=== PATIENT | male | born 2000 | race Caucasian/White ===

== ENCOUNTER 2023-09-02 23:50 | Emergency (ER) | payer BC, SELFPAY ==
[2023-09-02 23:53] VITALS: BP 137/87
--- NOTE | 2023-09-03 00:21 | ED.GENMED ---
History of Present Illness
General
Chief Complaint: Heart Rate Problem
Source: patient
Exam Limitations: none
Time Seen by Provider: 09/03/23 00:17
Travel History
Have you had any contact with someone who has COVID-19?: No
Do you have any symptoms of coronavirus? Fever > 100 degrees, chills, cough, shortness of breath, sore throat, loss of taste or smell, muscle aches, or headache?: No
History of Present Illness
History of Present Illness:
Patient presents with heart fluttering over the last 24 hours. Intermittent. At times feels mildly shortness of breath. Feels like he might be in atrial fibrillation although he has never been in atrial fibrillation before. States he does have a
history of PACs. No pleuritic pain no fever no cough.
Past History
Past History
ED Past Medical History: Arrthythmia (PACs)
ED Past Surgical History: Other (Dental)
Social History
Tobacco: Non-smoker
Drug: None
Personal: Single
Employment: Employed
Family History
Family History: Negative Early CAD or Sudden
Phy Exam
Physical Exam
Physical Exam:
GENERAL: Alert and oriented in no apparent distress
EYE: Orbits normal.
NECK: Supple, no thyroid palpable
ENT: Pharynx without erythema
CARDIAC: Regular rate and rhythm without any obvious murmurs.
LUNGS: Clear breath sounds,normal
ABDOMEN: Soft, without focal tenderness or distention
NEUROLOGICAL: Alert and oriented , grossly non-focal. Good lower extremity strength
SKIN: Warm and dry, no rash or lesion, no discoloration, skin intact.
MUSCULOSKELETAL: No edema,no deformity.Good color. No cord. No calf tenderness or swelling
PSYCH: Normal and appropriate interaction.
Course
Orders/Labs/Results
Orders:
Orders
09/02/23 23:58
EKG [Electrocardiogram (*1)] Urgent
Reason for Study: Palpitations
EKG- Treatment ONCE
09/03/23 00:17
Cardiac Monitoring- Treatment ONCE
IV Insert/Care/Rem.- Treatment PRN
09/03/23 00:32
Basic Metabolic Panel Urgent
Complete Blood Count/With Diff Urgent
D-Dimer Urgent
TSH Reflex To Free T4 Urgent
Troponin I Urgent
Abnormal Lab Results
09/03/23
00:32
RBC 4.51 L 10^6/uL
(4.70-6.10)
Hct 38.1 L %
(39.0-52.0)
Abs Immat Gran (auto) 0.1 H 10^3/uL
(0-0.05)
Absolute Neuts (auto) 7.0 H 10^3/uL
(1.4-6.5)
Absolute Monos (auto) 0.8 H 10^3/uL
(0.1-0.6)
Glucose 102 H mg/dl
(70-99)
09/03/23 00:32
09/03/23 00:32
Vital Signs
Initial and Last Documented VS:
Initial Vital Signs
Temp Pulse Resp BP Pulse Ox
98.2 F 76 16 137/87 97
09/02/23 23:53 09/02/23 23:53 09/02/23 23:53 09/02/23 23:53 09/02/23 23:53
Last Documented Vital Signs
Temp Pulse Resp BP Pulse Ox
98.2 F 76 16 137/87 97
09/02/23 23:53 09/02/23 23:53 09/02/23 23:53 09/02/23 23:53 09/03/23 00:35
MDM/Problems Addressed
Differential Diagnosis Includes:
Patient complaining of heart racing and fluttering. Benign exam. Workup in progress. Evaluate for pulmonary emboli, myocarditis, thyroid or electrolyte issue.
*Pulse Oximetry
Patient hypoxic: no
*EKG
Interpreted by ED Provider?: Yes
Interpretation: normal
Comparison EKG: no comparison EKG present
Heart Rate: 67
Rate: normal
Rhythm: sinus
[place]: normal axis
Interval: normal interval
QRS Pattern: normal QRS
Ischemia: no ischemia
*Critical Care Note
Total Time (30-74mins, 75-104mins- exclusive of procedures): Not Applicable
Update Note
Update Note:
Patient has remained medically stable and nontoxic. No arrhythmias on the monitor. Stable for discharge to follow-up
ED Attending Note
-
Portions of this chart may have been created with voice recognition software.� Occasional wrong word or��sound alike� substitutions may have occurred due to the inherent limitations of voice recognition software.
Discharge Plan
Departure
Patient Disposition: Home (Routine Discharge)
Date of Disposition: 09/03/23
Time of Disposition: 01:25
Patient with high blood pressure during this ER visit?: Yes
Discharge Problem:
Palpitations
Instructions: Palpitations (DC), BLOOD PRESSURE
Prescriptions:
No Action
amoxicillin 500 MG capsule
500 mg PO TID Qty: 42 0RF
Referrals:
Angélica Bojorquez CRNP [Family Provider] - Follow up in 2-3 days
Activity Restrictions/Additional Instructions:
As we discussed, to consider Holter monitor with persistent symptoms
Interventions
Interventions:
*Risk Screen - Suicide Last Done: 09/02/23 23:53
*General Assessment Last Done: 09/02/23 23:53
*Neglect/Abuse Screening Last Done: 09/02/23 23:53
ED- Fall Risk Assessment Last Done: 09/02/23 23:53
*ED COVID-19 Vaccine History Last Done: 09/02/23 23:53
*Nursing Disposition Last Done: 09/03/23 01:38
ED- Cardiac Assessment Last Done: 09/03/23 00:35
ED- Pulmonary Assessment Last Done: 09/03/23 00:35
Discharge Date and Time
Discharge Date/Time: 09/03/23 01:38
Print Language: CENTRAL AFRICAN
[2023-09-03 00:35] VITALS: BMI 39.3
[2023-09-03 00:40] LABS: % Basophils 0.5 % (0-2); % Eosinophils 1.1 % (0-6); % Immature Granulocytes 0.5 % (0-0.5); % Lymphocytes 22.7 % (20.5-51.1); % Monocytes 7.5 % (1.7-9.3); % Neutrophils 67.7 % (42.2-75.2); Absolute Basophils 0.1 10^3/uL (0-0.2); Absolute Eosinophils 0.1 10^3/uL (0-0.7); Absolute Immature Granulocytes 0.1 10^3/uL (0-0.05); Absolute Lymphocytes 2.4 10^3/uL (1.2-3.4); Absolute Monocytes 0.8 10^3/uL (0.1-0.6); Hematocrit 38.1 % (39.0-52.0); Hemoglobin 13.6 g/dL (13.0-18.0); Mean Corp Hgb Conc. 35.7 g/dL (33.0-37.0); Mean Corpuscular Hgb 30.2 pg (27.0-31.0); Mean Corpuscular Volume 84.5 fL (80.0-94.0); Mean Platelet Volume 8.8 fL (7.4-10.4); Nucleated Red Blood Cells % 0 % (-); Platelet Count 266 10^3/uL (130-400); Red Blood Cell Count 4.51 10^6/uL (4.70-6.10); Red Cell Dist. Width 11.9 % (11.5-14.5); White Blood Cell Count 10.4 10^3/uL (4.8-10.8)
[2023-09-03 00:53] LABS: D-Dimer 0.28 ug/mlFEU (0.00-0.50)
[2023-09-03 01:04] LABS: Troponin I < 0.012 ng/ml
[2023-09-03 01:20] LABS: Blood Urea Nitrogen 18 mg/dl (9-20); Calcium 9.8 mg/dl (8.4-10.2); Carbon Dioxide 25 mmol/L (22-30); Chloride 104 mmol/L (98-107); Estimated Creatinine Clearance > 125 ml/min; Glucose 102 mg/dl (70-99); Potassium 4.2 mmol/L (3.5-5.1); Sodium 139 mmol/L (135-145); eGFR > 60.00
[2023-09-03 01:35] LABS: TSH Reflex To Free T4 2.62 uIU/ml (0.47-4.68)
== END 2023-09-03 01:38 | disposition home or self-care (01) ==
LOC: EMR 23:50
PROVIDERS: EMERGENCY PHYSICIAN Emergency Medicine; FAMILY PHYSICIAN Nurse Practitioner
DX: R00.2 Palpitations (principal); R06.02 Shortness of breath; R03.0 Elevated blood-pressure reading, without diagnosis of hypertension
CPT/HCPCS: 99283; 80048; 84443; 84484; 85025; 85379; 93005

== ENCOUNTER 2023-09-05 14:23 | Emergency (ER) | payer BC, SELFPAY ==
[2023-09-05 14:28] VITALS: BP 124/73
[2023-09-05 15:13] VITALS: BP 111/76
[2023-09-05 15:47] VITALS: BMI 39.2
[2023-09-05 16:00] VITALS: BP 134/62
--- NOTE | 2023-09-05 16:20 | ED.GENMED ---
History of Present Illness
General
Chief Complaint: Heart Rate Problem
Source: patient
Time Seen by Provider: 09/05/23 16:07
Travel History
Have you had any contact with someone who has COVID-19?: No
Do you have any symptoms of coronavirus? Fever > 100 degrees, chills, cough, shortness of breath, sore throat, loss of taste or smell, muscle aches, or headache?: No
History of Present Illness
History of Present Illness:
23-year-old male presents to the emergency room complaining of palpitations. Patient had an episode today where he felt a bit lightheaded. He noted that his pulse changed from 70s to 60s. He thought this might be too low for him. 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 He denies any significant chest pain. No shortness of breath. He does not take any prescription medications.
Past History
Past History
ED Past Medical History: Arrthythmia (PACs)
ED Past Surgical History: Other (Dental)
Social History
Tobacco: Non-smoker
Drug: None
Personal: Single
Employment: Employed
Family History
Family History: Negative Early CAD or Sudden
Phy Exam
Physical Exam
Physical Exam:
General: Awake, Alert, Oriented X3. No acute distress.
Vitals: unremarkable
Head: Atraumatic
Eyes: Pupils equal, EOMI
Throat: Airway intact, no exudates
Neck: Trachea midline
Lungs: Clear and equal b/l
Heart: Regular rate, no murmurs
Abd: Soft, Nontender, No pulsatile mass
Neuro: Nonfocal
Skin: Warm, dry, no rash
Extremities: pulses equal b/l, no edema
Course
Orders/Labs/Results
Orders:
Orders
09/05/23 14:31
EKG [Electrocardiogram (*1)] Urgent
Reason for Study: Tachycardia
EKG- Treatment ONCE
Vital Signs
Initial and Last Documented VS:
Initial Vital Signs
Temp Pulse Resp BP Pulse Ox
98.5 F 76 18 124/73 97
09/05/23 14:28 09/05/23 14:28 09/05/23 14:28 09/05/23 14:28 09/05/23 14:28
Last Documented Vital Signs
Temp Pulse Resp BP Pulse Ox
98.5 F 66 24 111/76 96
09/05/23 14:28 09/05/23 15:46 09/05/23 15:46 09/05/23 15:13 09/05/23 15:47
MDM/Problems Addressed
Differential Diagnosis Includes:
PACs, PVCs, normal sinus rhythm, anxiety
MDM/Problems Addressed:
Patient presents for changes in his heart rate. Patient has not had any dysrhythmias on the monitor. His EKG is normal. Patient had blood work couple days ago which was normal. Patient can be reassured that there is no significant abnormalities.
He is stable for discharge home and outpatient follow-up with his primary care provider.
*Pulse Oximetry
Patient hypoxic: no
*EKG
Interpreted by ED Provider?: Yes
Interpretation: normal
Heart Rate: 68
Rate: normal
Rhythm: sinus
[place]: normal axis
Interval: normal interval
QRS Pattern: normal QRS
Ischemia: no ischemia
*Talent Acquisition Program Manager Interpretation
Rate: normal
Interpretation: normal
Rhythm: sinus
*Critical Care Note
Total Time (30-74mins, 75-104mins- exclusive of procedures): Not Applicable
ED Attending Note
-
Portions of this chart may have been created with voice recognition software.� Occasional wrong word or��sound alike� substitutions may have occurred due to the inherent limitations of voice recognition software.
Discharge Plan
Departure
Patient Disposition: Home (Routine Discharge)
Date of Disposition: 09/05/23
Time of Disposition: 16:23
Patient with high blood pressure during this ER visit?: No
Condition: Good
Discharge Problem:
Palpitations
Instructions: Palpitations (DC)
Prescriptions:
No Action
amoxicillin 500 MG capsule
500 mg PO TID Qty: 42 0RF
Referrals:
Lois Bird MD [Family Provider] -
Activity Restrictions/Additional Instructions:
You came to the emergency room due to concerns about your heart rate. Your heart has been in a normal rhythm here in the emergency room. I reviewed the blood work obtained the other day and it is normal. I recommended primary care doctor who can
perhaps arrange a monitor that he can wear for extended period of time to make sure there is no other heart rhythm problems however everything here in the emergency room checks out and you are safe for discharge.
Interventions
Interventions:
*Risk Screen - Suicide Last Done: 09/05/23 15:46
*General Assessment Last Done: 09/05/23 14:28
*Neglect/Abuse Screening Last Done: 09/05/23 15:46
ED- Fall Risk Assessment Last Done: 09/05/23 15:46
*ED COVID-19 Vaccine History Last Done: 09/05/23 14:28
ED- Cardiac Assessment Last Done: 09/05/23 15:47
ED- Pulmonary Assessment Last Done: 09/05/23 15:47
Discharge Date and Time
Print Language: SLOVAK
== END 2023-09-05 16:43 | disposition home or self-care (01) ==
LOC: EMR 14:23
PROVIDERS: EMERGENCY PHYSICIAN Emergency Medicine; FAMILY PHYSICIAN Internal Medicine
DX: R00.2 Palpitations (principal); R42 Dizziness and giddiness
CPT/HCPCS: 99283; 93005

== ENCOUNTER → 2023-09-11 10:55 | Outpatient (REF) | payer BC, SELFPAY | LOC: RCS 10:55 | PROVIDERS: ATTENDING PHYSICIAN Nurse Practitioner | DX: R00.2 Palpitations (principal) | CPT/HCPCS: 93225; 93226 ==

== ENCOUNTER 2023-10-01 19:15 | Emergency (ER) | payer BC, SELFPAY ==
[2023-10-01 19:20] VITALS: BP 144/80
[2023-10-01 19:53] VITALS: BMI 39.4
[2023-10-01 19:56] VITALS: BP 132/61
[2023-10-01 20:00] VITALS: BP 135/71
[2023-10-01 20:10] LABS: % Basophils 0.4 % (0-2); % Eosinophils 1.4 % (0-6); % Immature Granulocytes 0.3 % (0-0.5); % Lymphocytes 33.1 % (20.5-51.1); % Neutrophils 57.8 % (42.2-75.2); Absolute Eosinophils 0.1 10^3/uL (0-0.7); Absolute Lymphocytes 3.4 10^3/uL (1.2-3.4); Absolute Monocytes 0.7 10^3/uL (0.1-0.6); Hematocrit 36.3 % (39.0-52.0); Hemoglobin 13.3 g/dL (13.0-18.0); Mean Corp Hgb Conc. 36.6 g/dL (33.0-37.0); Mean Corpuscular Hgb 30.2 pg (27.0-31.0); Mean Corpuscular Volume 82.3 fL (80.0-94.0); Mean Platelet Volume 8.9 fL (7.4-10.4); Nucleated Red Blood Cells % 0 % (-); Platelet Count 264 10^3/uL (130-400); Red Blood Cell Count 4.41 10^6/uL (4.70-6.10); Red Cell Dist. Width 11.9 % (11.5-14.5); White Blood Cell Count 10.4 10^3/uL (4.8-10.8)
--- NOTE | 2023-10-01 20:15 | ED.GENMED ---
History of Present Illness
General
Chief Complaint: Chest Pain
Source: patient
Exam Limitations: none
Time Seen by Provider: 10/01/23 20:07
History of Present Illness
History of Present Illness:
23-year-old male presents complaining of chest pain that has been ongoing for several days for pain that radiates down the left arm. He denies significant shortness of breath. The pain is not pleuritic. He was here 3 weeks ago for palpitations
and in the interim had a Holter monitor placed. No recent travel or surgery. No leg swelling or calf pain. No other complaints at this
Past History
Past History
ED Past Medical History: Arrthythmia (PACs)
ED Past Surgical History: Other (Dental)
Social History
Tobacco: Non-smoker
Drug: None
Personal: Single
Employment: Employed
Family History
Family History: Negative Early CAD or Sudden
Phy Exam
Physical Exam
Physical Exam:
General: Well-appearing nontoxic male no acute distress
HEENT: Normocephalic atraumatic
Heart: Regular rate and rhythm no murmurs
Lungs: Clear no wheeze
Extremities: No cyanosis or edema
Skin: Warm no rash
Scores
Heart Score for Chest Pain Patients
STEMI patient?: No
History: Slightly or Non-Suspicious
ECG: Normal
Age: </= 45 years
Risk Factors: No Risk Factors
Troponin: </= Normal Limit
Heart Score for Chest Pain Patients: 0
Heart Score Risk: 2.5% MACE over next 6 weeks
Course
Orders/Labs/Results
Orders:
Orders
10/01/23 19:20
Electrocardiogram (*1) Urgent
Reason for Study: Chest Pain
EKG- Treatment ONCE
10/01/23 20:02
Complete Blood Count/With Diff Urgent
Comprehensive Metabolic Panel Urgent
Troponin I Urgent
Abnormal Lab Results
10/01/23
20:02
RBC 4.41 L 10^6/uL
(4.70-6.10)
Hct 36.3 L %
(39.0-52.0)
Absolute Monos (auto) 0.7 H 10^3/uL
(0.1-0.6)
10/01/23 20:02
10/01/23 20:02
Vital Signs
Initial and Last Documented VS:
Initial Vital Signs
Temp Pulse Resp BP Pulse Ox
98.1 F 72 18 144/80 98
10/01/23 19:20 10/01/23 19:20 10/01/23 19:20 10/01/23 19:20 10/01/23 19:20
Last Documented Vital Signs
Temp Pulse Resp BP Pulse Ox
98.1 F 75 18 135/71 99
10/01/23 19:20 10/01/23 20:30 10/01/23 20:30 10/01/23 20:00 10/01/23 20:30
MDM/Problems Addressed
Differential Diagnosis Includes:
Chest pain with arm pain. Consider ACS versus anxiety. Vital signs stable no risk for PE. Do not suspect PE. I reviewed recent Holter monitor which showed symptomatic Holter monitoring with sinus tachycardia.
*Critical Care Note
Total Time (30-74mins, 75-104mins- exclusive of procedures): Not Applicable
Update Note
Update Note:
Initial workup here is negative including troponin. Do not suspect ACS. Patient here frequently for chest pain. He is following with cardiology. Recommend he follow-up with them. Stable for discharge
ED Attending Note
-
Portions of this chart may have been created with voice recognition software.� Occasional wrong word or��sound alike� substitutions may have occurred due to the inherent limitations of voice recognition software.
Discharge Plan
Departure
Patient Disposition: Home (Routine Discharge)
Date of Disposition: 10/01/23
Time of Disposition: 21:17
Patient with high blood pressure during this ER visit?: No
Discharge Problem:
Chest pain
Instructions: Chest Pain CBC Follow Up
Prescriptions:
No Action
amoxicillin 500 MG capsule
500 mg PO TID Qty: 42 0RF
Activity Restrictions/Additional Instructions:
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
Interventions
Interventions:
*Risk Screen - Suicide Last Done: 10/01/23 19:20
*General Assessment Last Done: 10/01/23 19:20
*Neglect/Abuse Screening Last Done: 10/01/23 19:20
ED- Cardiac Assessment Last Done: 10/01/23 19:53
Discharge Date and Time
Print Language: KHMER
[2023-10-01 20:35] LABS: Troponin I < 0.012 ng/ml
[2023-10-01 20:41] LABS: ALT (SGPT) 21 U/L (0-50); AST (SGOT) 23 U/L (17-59); Albumin 4.5 g/dl (3.5-5.0); Alkaline Phosphatase 77 U/L (38-126); Blood Urea Nitrogen 15 mg/dl (9-20); Calcium 9.2 mg/dl (8.4-10.2); Carbon Dioxide 25 mmol/L (22-30); Chloride 105 mmol/L (98-107); Estimated Creatinine Clearance > 125 ml/min; Glucose 93 mg/dl (70-99); Potassium 4.1 mmol/L (3.5-5.1); Sodium 139 mmol/L (135-145); Total Bilirubin 0.9 mg/dl (0.2-1.3); eGFR > 60.00
[2023-10-01 21:00] VITALS: BP 134/73
== END 2023-10-01 21:42 | disposition home or self-care (01) ==
LOC: EMR 19:15
PROVIDERS: EMERGENCY PHYSICIAN Emergency Medicine; FAMILY PHYSICIAN Nurse Practitioner
DX: R07.89 Other chest pain (principal)
CPT/HCPCS: 99284; 80053; 84484; 85025; 93005

== ENCOUNTER → 2023-10-05 15:40 | Outpatient (REF) | payer BC, SELFPAY | LOC: RCS 15:40 | PROVIDERS: ATTENDING PHYSICIAN Nurse Practitioner | DX: I49.8 Other specified cardiac arrhythmias (principal) | CPT/HCPCS: 93306 ==

== ENCOUNTER → 2023-12-22 16:19 | Outpatient (REF) | payer BC, SELFPAY | LOC: RAD 16:19 | PROVIDERS: ATTENDING PHYSICIAN Hospitalist | DX: Z00.00 Encounter for general adult medical examination without abnormal findings (principal) | CPT/HCPCS: 71046 ==

== ENCOUNTER 2024-02-24 18:13 | Emergency (ER) | payer BC, SELFPAY ==
[2024-02-24 18:15] VITALS: BP 157/85
--- NOTE | 2024-02-24 18:18 | EDRN ---
US has a pt already and will call when ready for [place].
[2024-02-24 19:31] VITALS: BMI 39.5
--- NOTE | 2024-02-24 21:14 | ED.GENMED ---
History of Present Illness
General
Chief Complaint: Musculo-Skeletal Complaint
Source: patient
Exam Limitations: none
Time Seen by Provider: 02/24/24 19:16
History of Present Illness
History of Present Illness:
This is a 23 year old male that comes in with c/o right leg pain. States that he felt that his right leg was a little swollen and he had calf pain. States that when he stands it hurts more. Denies any long trips or flights. States that he has felt
a little lightheaded. Denies any fever, chills, chest pain, SOB, abd pain, nausea, vomiting, diarrhea, headache, urinary burning.
Past History
Past History
ED Past Medical History: Arrthythmia (PACs); Negative Asthma, HTN, Hypercholesterolemia or NIDDM
ED Past Surgical History: Other (Dental)
Social History
Tobacco: Non-smoker
Alcohol: None
Drug: None
Personal: Single
Living: with family
Employment: Employed
Family History
Family History: Negative Early CAD or Sudden
Review of Systems
Review of Systems
All Other Systems: ROS reviewed and negative except as documented in HPI and ROS
Constitutional: Reports no symptoms; Denies fever or chills
EENT: Reports no symptoms
Respiratory: Reports no symptoms; Denies cough or trouble breathing
Cardiac: Reports no symptoms; Denies chest pain
ABD/GI: Reports no symptoms; Denies abdominal pain, nausea, vomiting or diarrhea
: Reports no symptoms; Denies dysuria, frequency or urgency
Musculoskeletal: Reports other (Right leg pain with swelling)
Skin: Reports no symptoms
Neurological: Reports other (Lightheaded occaisonally); Denies dizzy or headache
Psychiatric: Reports no symptoms
Phy Exam
General Physical Exam
General Presentation: well appearing and no apparent distress
General age: appears stated age
General Skin: warm and dry
General Habitus: normal
General Mental: alert
General Hydration: appears well hydrated
ENT Exam
ENT Exam: TM's normal, pharynx normal and neck supple
Eye Exam
Eye Exam: EOMI
Cardiovascular Exam
Cardiovascular Exam: regular rate/rhythm, no edema, no murmur and normal peripheral pulses
Pulmonary Exam
Pulmonary Exam: lungs clear, no respiratory distress, no rales, chest non tender, no crackles, no rhonchi, no wheezing and no cough
Musculoskeletal Exam
Musculoskeletal Exam: full ROM and no edema
Skin Exam
Skin Exam: normal color, warm/dry, no rash and no petechia
Psychiatric Exam
Psychiatric Exam: normal mood/affect
Course
Orders/Labs/Results
Orders:
Orders
02/24/24 18:17
Periph Venous Lwr Ext Rt US [US Periph Venous LOWER Ext RT] Urgent
Comment:
Reason For Exam: possible DVT
Vital Signs
Initial and Last Documented VS:
Initial Vital Signs
Temp Pulse Resp BP Pulse Ox
98.2 F 73 16 157/85 99
02/24/24 18:15 02/24/24 18:15 02/24/24 18:15 02/24/24 18:15 02/24/24 18:15
Last Documented Vital Signs
Temp Pulse Resp BP Pulse Ox
98.2 F 73 16 157/85 99
02/24/24 18:15 02/24/24 18:15 02/24/24 18:15 02/24/24 18:15 02/24/24 18:15
MDM/Problems Addressed
Differential Diagnosis Includes:
DVT, Muscle strain
MDM/Problems Addressed:
This is a 23 year old male that comes in with c/o right leg discomfort. State that he has pain in the right calf.
Will get US.
Back into see patient. Explained that his US was negative. Explained that he may have pulled a muscle. Encouraged patient to use Tylenol or Ibuprofen for pain. Patient to return with any concerns.
Chronic conditions affecting care:
NA
Acute Exacerbation and/or Progression of Chronic Illness:
NA
*Radiology
Radiology exam reviewed: radiology read reviewed (US-NO evidence of right lower extremity deep venous thrombosis. )
*Pulse Oximetry
Patient hypoxic: no
*EKG
Interpreted by ED Provider?: NA
Rate: EKG- N/A
*Damage Appraiser Interpretation
Rate: Damage Appraiser- N/A
*Critical Care Note
Total Time (30-74mins, 75-104mins- exclusive of procedures): Not Applicable
ED Attending Note
-
Portions of this chart may have been created with voice recognition software.� Occasional wrong word or��sound alike� substitutions may have occurred due to the inherent limitations of voice recognition software.
Discharge Plan
Departure
Patient Disposition: Home (Routine Discharge)
Date of Disposition: 02/24/24
Time of Disposition: 21:20
Patient with high blood pressure during this ER visit?: Yes
Condition: Good
Covid-19: Not Applicable
Discharge Problem:
Muscle strain of right lower leg
Instructions: Muscle Strain (DC), BLOOD PRESSURE
Prescriptions:
No Action
amoxicillin 500 MG capsule
500 mg PO TID Qty: 42 0RF
Referrals:
Angélica Bojorquez CRNP [Family Provider] - As needed
Activity Restrictions/Additional Instructions:
As discussed, your ultrasound is negative for any blood clots. You may have pulled a muscle. Please use Tylenol or Ibuprofen for any discomfort. Follow up with the family doctor as needed. IF YOU HAVE ANY OTHER CONCERNS PLEASE RETURN TO THE
EMERGENCY ROOM.
Interventions
Interventions:
*Risk Screen - Suicide Last Done: 02/24/24 18:15
*General Assessment Last Done: 02/24/24 19:31
*Neglect/Abuse Screening Last Done: 02/24/24 18:15
*ED COVID-19 Vaccine History Last Done: 02/24/24 19:31
ED-Musculoskeletal Assessment Last Done: 02/24/24 19:31
Discharge Date and Time
Print Language: SAUDI ARABIAN
[2024-02-24 21:26] VITALS: BP 120/61
== END 2024-02-24 21:30 | disposition home or self-care (01) ==
LOC: EMR 18:13
PROVIDERS: EMERGENCY PHYSICIAN Emergency Medicine; FAMILY PHYSICIAN Nurse Practitioner
DX: S86.911A Strain of unspecified muscle(s) and tendon(s) at lower leg level, right leg, initial encounter (principal); M79.661 Pain in right lower leg; R42 Dizziness and giddiness; R22.41 Localized swelling, mass and lump, right lower limb; X58.XXXA Exposure to other specified factors, initial encounter; I49.1 Atrial premature depolarization
CPT/HCPCS: 99284; 93971

== ENCOUNTER 2024-03-01 03:19 | Emergency (ER) | payer BC, SELFPAY ==
[2024-03-01 03:22] VITALS: BP 135/82
[2024-03-01 03:58] LABS: Hemoglobin 13.6 g/dL (13.0-18.0); Mean Corp Hgb Conc. 34.9 g/dL (33.0-37.0); Mean Corpuscular Volume 86.1 fL (80.0-94.0); Mean Platelet Volume 8.9 fL (7.4-10.4); Platelet Count 256 10^3/uL (130-400); Red Blood Cell Count 4.53 10^6/uL (4.70-6.10); Red Cell Dist. Width 11.9 % (11.5-14.5); White Blood Cell Count 10.3 10^3/uL (4.8-10.8)
[2024-03-01 04:14] LABS: Blood Urea Nitrogen 18 mg/dl (9-20); Calcium 9.1 mg/dl (8.4-10.2); Carbon Dioxide 28 mmol/L (22-30); Chloride 102 mmol/L (98-107); Glucose 92 mg/dl (70-99); Potassium 4.3 mmol/L (3.5-5.1); Sodium 140 mmol/L (135-145); eGFR > 60.00
--- NOTE | 2024-03-01 05:17 | ED.GENMED ---
History of Present Illness
<KERRI Keenan - Last Filed: 03/01/24 05:42>
General
Chief Complaint: Fainting Sensation
Source: patient and family
Exam Limitations: none
Time Seen by Provider: 03/01/24 05:16
Nursing documentation reviewed up to this point in time: agreed with
History of Present Illness
History of Present Illness:
Pt is a 23M w/ PMH of PACs and GERD who presents to the ED with his mother for evaluation after an episode of syncope that occurred tonight. He states that the episode started with him having a 'charley horse' in his leg and as it was resolving he
got up to use the restroom and became dizzy. He states he then tried to return to bed but passed out trying to get there. When he returned to consciousness, his upper body was lying on his bed. He denies trauma to his head. Pt states he took his BP
at home after the incident and it read 100/60, which concerned him that it might be low. He states that he has had episodes of lightheadedness before and saw cardio in August 2023, where they placed a Holter monitor and he says the report was wnl
other than a few PACs. He also had an ECHO done in September 2023, which was wnl. He states he stopped his PPI 4 days ago and began Lexapro at the same time. He denies ERICKSON, n/v/d/c, chest pain, SOB, dyspnea, abdominal pain.
Past History
<KERRI Keenan - Last Filed: 03/01/24 05:42>
Past History
ED Past Medical History: Arrthythmia (PACs); Negative Asthma, HTN, Hypercholesterolemia or NIDDM
ED Past Surgical History: Other (Dental)
Social History
Tobacco: Non-smoker
Alcohol: None
Drug: None
Personal: Single
Living: with family
Employment: Employed
Family History
Family History: Negative Early CAD or Sudden
Phy Exam
<Therese Ocasio [facility] - Last Filed: 03/01/24 05:42>
General Physical Exam
General Presentation: well appearing and no apparent distress
General age: appears stated age
General Skin: warm and dry
General Habitus: obese
General Mental: alert
General Hydration: appears well hydrated
Cardiovascular Exam
Cardiovascular Exam: regular rate/rhythm, no edema and no murmur
Pulmonary Exam
Pulmonary Exam: lungs clear and no respiratory distress
Gastrointestinal Exam
Gastrointestinal Exam: non tender and soft
Neurological Exam
Neurological Exam: alert and oriented x3
Mental
Describe Speech: normal speech
Course
<Therese Ocasio [facility] - Last Filed: 03/01/24 05:42>
Orders/Labs/Results
Orders:
Orders
03/01/24 03:28
ECG [Electrocardiogram (*1)] Urgent
Reason for Study: Syncope
EKG- Treatment ONCE
03/01/24 03:40
Basic Metabolic Panel Urgent
Complete Blood Count/No Diff Urgent
03/01/24 05:35
Orthostatic VS- Treatment ONCE
Abnormal Lab Results
03/01/24
03:40
RBC 4.53 L 10^6/uL
(4.70-6.10)
03/01/24 03:40
03/01/24 03:40
Vital Signs
Initial and Last Documented VS:
Initial Vital Signs
Temp Pulse Resp BP Pulse Ox
98.2 F 82 18 135/82 100
03/01/24 03:22 03/01/24 03:22 03/01/24 03:22 03/01/24 03:22 03/01/24 03:22
Last Documented Vital Signs
Temp Pulse Resp BP Pulse Ox
98.2 F 82 18 135/82 100
03/01/24 03:22 03/01/24 03:22 03/01/24 03:22 03/01/24 03:22 03/01/24 03:22
<Shanae Cope DO - Last Filed: 03/01/24 06:35>
Orders/Labs/Results
Orders:
Orders
03/01/24 03:28
ECG [Electrocardiogram (*1)] Urgent
Reason for Study: Syncope
EKG- Treatment ONCE
03/01/24 03:40
Basic Metabolic Panel Urgent
Complete Blood Count/No Diff Urgent
03/01/24 05:35
Orthostatic VS- Treatment ONCE
Abnormal Lab Results
03/01/24
03:40
RBC 4.53 L 10^6/uL
(4.70-6.10)
03/01/24 03:40
03/01/24 03:40
Vital Signs
Initial and Last Documented VS:
Initial Vital Signs
Temp Pulse Resp BP Pulse Ox
98.2 F 82 18 135/82 100
03/01/24 03:22 03/01/24 03:22 03/01/24 03:22 03/01/24 03:22 03/01/24 03:22
Last Documented Vital Signs
Temp Pulse Resp BP Pulse Ox
98.2 F 82 18 135/82 100
03/01/24 03:22 03/01/24 03:22 03/01/24 03:22 03/01/24 03:22 03/01/24 03:22
<KERRI Keenan - Last Filed: 03/01/24 05:42>
MDM/Problems Addressed
Differential Diagnosis Includes:
POTS, dehydration, AFib
<KERRI Keenan - Last Filed: 03/01/24 05:42>
*Critical Care Note
Total Time (30-74mins, 75-104mins- exclusive of procedures): Not Applicable
<Shanae Cope DO - Last Filed: 03/01/24 06:35>
*Pulse Oximetry
Patient hypoxic: no
*EKG
Interpreted by ED Provider?: Yes
Interpretation: normal
Comparison EKG: no changes (Unchanged from previous September 2023)
Rate: normal
Rhythm: sinus
[place]: normal axis
Interval: normal interval
QRS Pattern: normal QRS
Ischemia: no ischemia
ED Attending Note
<KERRI Keenan - Last Filed: 03/01/24 05:42>
-
Portions of this chart may have been created with voice recognition software.� Occasional wrong word or��sound alike� substitutions may have occurred due to the inherent limitations of voice recognition software.
<Shanae Cope DO - Last Filed: 03/01/24 06:35>
ED Attending Note
Patient seen and examined by attending physician: Yes
I performed the substantive portion of visit, reviewed & personally made and approve the management plan that is documented in note by myself or ESPERANZA.: Yes
ED Attending Note:
This is a 23-year-old male with history of anxiety, admits to ongoing intermittent complaints of palpitations, intermittent lightheadedness and has been following with cardiology with thus far unremarkable echocardiogram and Holter monitor this
spring. Evaluated in this ED 1 week ago with complaints of right lower leg pain, swelling, ultrasound was negative for DVT.
He has followed up with his PCP since that visit and was started on Lexapro 10 mg 3 days ago.
He awoke this morning with a charley horse in his right calf which he admits to sporadic similar episodes. He got up out of bed quickly and became lightheaded. He states he briefly passed out but did not fall, sat on his bed and checked his blood
pressure and was concerned when it was low at 100/60. He continued to sit there and rechecked his blood pressure multiple times and was concerned with his blood pressure stayed at 100 systolic prompting ED visit. He was also concerned when he
checked his oral temperature and this was low at 95.8 �F.
He states his blood pressure generally runs 120-140.
He has had no recent GI illness, no cough or cold, appetite has been good.
GENERAL: 23-year-old overweight gentleman appears his stated age, awake and alert, mildly anxious, easily communicative.
EYE: anicteric
NECK: Supple, nontender, no meningismus, no significant adenopathy.
ENT:, oral mucosa is moist. No rhinorrhea.
CARDIAC: Regular rate and rhythm. no murmur.
LUNGS: Clear breath sounds bilaterally, no acute respiratory distress, no wheezes/rales/rhonchi
ABDOMEN: Soft, nondistended, without focal tenderness
NEUROLOGICAL: Alert and oriented x3, no focal neuro deficits.
SKIN: Warm and dry, normal color, skin intact. No rash.
MUSCULOSKELETAL: No C/C/E. peripheral pulses are full and equal b/l. No palpable tenderness.
PSYCH: Mildly anxious.
Concern for orthostatic hypotension, other consideration is arrhythmia, electrolyte abnormality. Less likely adverse reaction to the Lexapro is patient just recently started this 3 days ago and has had similar symptoms prior to Lexapro initiation.
Similar complaints on previous ED visits with unremarkable evaluations on each visit.
EKG is unremarkable, unchanged from previous.
Labs are unremarkable. Similar to previous.
Normal TSH just 6 months ago. No indication to repeat.
Will check orthostatic vital signs.
03/01/2024 0630 AM
patient remains asymptomatic. Orthostatic vital signs are negative. I suspect significant underlying anxiety.
Recommend he continue Lexapro but decrease dose to 5 mg daily over the next 6 days then increase to 10 mg daily.
Discussed importance of staying well-hydrated on a daily basis.
Prompt follow-up with PCP for recheck.
Discharge Plan
Departure
Patient Disposition: Home (Routine Discharge)
Date of Disposition: 03/01/24
Time of Disposition: 06:27
Patient with high blood pressure during this ER visit?: No
Condition: Good
Discharge Problem:
Episodic lightheadedness
Instructions: Generalized Anxiety Disorder (DC), Near Fainting (DC)
Prescriptions:
No Action
amoxicillin 500 MG capsule
500 mg PO TID Qty: 42 0RF
Referrals:
Angélica Bojorquez CRNP [Family Provider] - Call in 1-3 days for appt
Interventions
Interventions:
*Risk Screen - Suicide Last Done: 03/01/24 03:22
*Neglect/Abuse Screening Last Done: 03/01/24 03:22
ED- Fall Risk Assessment Last Done: 03/01/24 05:58
*Nursing Disposition Last Done: 03/01/24 06:32
ED- Cardiac Assessment Last Done: 03/01/24 05:58
ED- Neurological Assessment Last Done: 03/01/24 05:58
Discharge Date and Time
Discharge Date/Time: 03/01/24 06:32
Print Language: [id number]
[2024-03-01 05:57] VITALS: BP 129/66; BP 129/78; BP 139/74; PULSE 60; PULSE 74; PULSE 85
== END 2024-03-01 06:32 | disposition home or self-care (01) ==
LOC: EMR 03:19
PROVIDERS: EMERGENCY PHYSICIAN Emergency Medicine; FAMILY PHYSICIAN Nurse Practitioner
DX: R42 Dizziness and giddiness (principal); I49.1 Atrial premature depolarization
CPT/HCPCS: 99283; 80048; 85027; 93005

== ENCOUNTER → 2024-03-14 13:50 | Outpatient (REF) | payer BC, SELFPAY | LOC: EMG 13:50 | PROVIDERS: ATTENDING PHYSICIAN Nurse Practitioner | DX: R20.0 Anesthesia of skin (principal); R20.2 Paresthesia of skin; G56.03 Carpal tunnel syndrome, bilateral upper limbs | CPT/HCPCS: 95886; 95911 ==

== ENCOUNTER → 2024-03-17 22:00 | Outpatient (REF) | payer BC, SELFPAY | LOC: DHSLP 22:00 | PROVIDERS: ATTENDING PHYSICIAN Nurse Practitioner | DX: G47.30 Sleep apnea, unspecified (principal); R06.83 Snoring | CPT/HCPCS: 95800 ==